=== PATIENT | female | born 1965 | race Caucasian/White ===

== ENCOUNTER → 2024-02-27 | Day surgery (SDC) | payer OTHER ==
[2024-02-26 10:00] LABS: ALBUMIN 4.2 gm/dL (3.4-5.0); BILIRUBIN TOTAL 0.64 mg/dL (0.3-1.2); CALCIUM 10.9 mg/dL (8.5-10.1); CREATININE SERUM 0.61 mg/dL (0.55-1.02); GFR 100.74; GLOBULINA 3.6 G/DL (2.4-3.5); POTASSIUM 4.08 mEq/L (3.5-5.1); TOTAL PROTEIN 7.8 gm/dL (6.4-8.2)
[~2024-02-27] MED LIST: BACITRACIN 28.35 GM OINT.TUBE TOP SCH; CEFAZOLIN SODIUM 1,000 MG VIAL IV ONE; CEFAZOLIN SODIUM 1,000 MG VIAL IV SCH; CLINDAMYCIN PHOSPHATE 150 MG/ML (600mg) IV SCH; ENOXAPARIN SODIUM 40 MG/0.4 ML SYRINGE SUBCUTANEO SCH; EPINEPHRINE HCL/PF 1 MG/ML AMPUL IR SCH; GENTAMICIN SULFATE 40 MG/ML VIAL IR SCH; LIDOCAINE HCL 1%/EPINEPHRINE 20ML VIAL IJ ONE; LIDOCAINE HCL 1%/EPINEPHRINE 20ML VIAL IJ SCH; TRANEXAMIC ACID 100MG/1ML (1000MG) AMPUL IV SCH; VANCOMYCIN HCL 1,000 MG VIAL IR SCH
== END | disposition home or self-care (01) ==
LOC: ADM 02-26 15:00 → CIR.AMB 05:14
PROVIDERS: ATTEND Specialist
DX: N62 Hypertrophy of breast (principal); E65 Localized adiposity; J45.909 Unspecified asthma, uncomplicated